=== PATIENT | female | born 1990 | race Caucasian/White ===

== ENCOUNTER 2020-05-20 05:58 | Emergency (ER) | payer OTHER, SELFPAY ==
--- NOTE | ~2020-05-20 | CT_ITS ---
EXAMINATION: CT abdomen pelvis w con EXAM DATE: 05/20/2020 07:46 INDICATION: Right upper quadrant abdominal pain, nausea and vomiting. TECHNIQUE: Spiral CT of the abdomen and pelvis was performed following intravenous injection of 100 m L Omnipaque 350. Axial, coronal and sagittal images were reviewed. The dose-length product (DLP) fo r this examination was 249.00 mGy-cm. The exposure was tailored according to patient size (auto mA e xposure control), and iterative reconstruction (ASIR) was used as additional dose reduction technique . There is no prior study for comparison. FINDINGS: The liver, spleen, adrenal glands and pancreas are unremarkable. Gallbladder is unremarkab le. No biliary obstruction. Portal and splenic veins are patent. Kidneys enhance symmetrically. T here is no hydronephrosis. The uterus is retroverted and morphologically normal. The bladder is u nremarkable. There is no retroperitoneal or pelvic lymphadenopathy. The appendix is not positively visualized. There is no pericecal inflammatory change to suggest appe ndicitis. The stomach and small bowel are unremarkable. There is expected amount of colonic stool. No free intraperitoneal gas. The heart is normal in size. There are no pericardial or pleural e ffusions. The lung bases are unremarkable. There are no osteoblastic or osteolytic lesions identifi ed. IMPRESSION: 1. No acute intra-abdominal findings. Reviewed, dictated and finalized at location A.
[2020-05-20 05:59] VITALS: BP 132/82; PULSE 82; RESP 20; TEMP 37; O2SAT 100
[2020-05-20 06:31] LABS: Basophils Percent Auto 0.4 % (0.2-1.2); Eosinophils Absolute Auto 0.3 K/mm3 (0-0.3); Hematocrit 36.9 % (37.0-47.0); Hemoglobin 12.5 g/dL (12.0-15.0); Immature Granulocyte Absolute 0.03 K/mm3 (0.00-0.031); Immature Granulocyte Percent A 0.3 % (0-0.5); Lymphocytes Absolute Auto 1.75 K/mm3 (0.9-3.2); Lymphocytes Percent Auto 18.3 % (18.3-44.2); Mean Corpuscular HGB Conc 33.9 g/dl (32-36); Mean Corpuscular Hemoglobin 32.2 pg (26-34); Mean Corpuscular Volume 95.1 fl (80-100); Monocytes Absolute Auto 0.7 K/mm3 (0.1-0.6); Monocytes Percent Auto 6.9 % (2.6-8.5); Neutrophils Absolute Auto 6.8 K/mm3 (1.3-6.7); Neutrophils Percent Auto 71.1 % (45.5-73.1); Platelet Count Result 306 k/mm3 (150-375); Red Blood Count 3.88 M/mm3 (4.2-5.4); Red Cell Distribution Width 11.9 % (11.5-14.5); White Blood Count 9.6 K/mm3 (4.5-10.0)
[2020-05-20 06:46] LABS: Alanine Aminotransferase 12 U/L (4-35); Albumin Level 4.7 g/dL (3.5-5.1); Alkaline Phosphatase 54 U/L (38-126); Anion Gap 11.8 mmol/L (7-16); Aspartate Amino Transferase 23 U/L (14-36); Bilirubin,Total 0.4 mg/dL (0.2-1.3); Blood Urea Nitrogen 12 mg/dL (7-17); Calcium 9.3 mg/dL (8.4-10.2); Carbon Dioxide 27 mmol/L (22-30); Chloride 103 mmol/L (98-107); Estimated Glomerular Filt Rate > 60; Glucose 92 mg/dL (65-105); Lipase 131 U/L (23-300); Potassium 3.8 mmol/L (3.4-5.0); Sodium 138 mmol/L (137-145)
[2020-05-20 06:51] LABS: Add Urine Microscopic? YES; Appearance Urine Clear (Clear); Bacteria Urine Trace /hpf; Bilirubin Urine Negative (Negative); Blood Urine 1+ (Negative); Color Urine Yellow (Yellow); Glucose Urine UA Negative (Negative); Ketones Urine Negative (Negative); Leukocyte Esterase Ur Negative LEU/UL (Negative); Mucus Urine Heavy /lpf; Nitrate Urine Negative (Negative); Protein Urine Negative (Negative); Squamous Epithelial Cell Urine Moderate /hpf (Few); Urobilinogen Urine Negative mg/dL (<2.0)
--- NOTE | 2020-05-20 07:04 | ED.ABDPAIN ---
HPI - Abdominal Pain General Chief Complaint: Abdominal Pain Stated Complaint: ABD PAIN Time Seen by Provider: 05/20/20 06:20 History of Present Illness HPI narrative: RUQ and epigastric pain since early this morning. Described as sharp and stabbing. No radiation. No exacerbating or alleviating factors. No nausea, vomiting, diarrhea, constipation, fever. She has never had this pain before. FHx of gall bladder disease in her mother. History mildly limited by prior stroke. Related Data Home Medications Medication Instructions Recorded Confirmed levetiracetam 750 mg PO BID 05/20/20 05/20/20 lisinopril 10 mg PO DAILY 05/20/20 05/20/20 Allergies Allergy/AdvReac Type Severity Reaction Status Date / Time No Known Allergies Allergy Verified 05/20/20 06:03 Review of Systems Review of Systems: All systems reviewed & are unremarkable except as noted in HPI and below Constitutional: Constitutional: Denies fever(s) Cardiovascular: Cardiovascular: Denies chest pain Respiratory: Respiratory: Denies dyspnea Gastrointestinal: Gastrointestinal: Denies abdominal pain, Denies constipation, Denies diarrhea, Denies nausea and Denies vomiting Genitourinary: Genitourinary: Denies hematuria and Denies dysuria Musculoskeletal: Musculoskeletal: Denies back pain Neurologic: Denies dizziness and Denies weakness [facility] Past Medical History Medical History (Updated 05/20/20 @ 09:41 by Rene Torres MD) Preeclampsia Stroke Family History Family History (Updated 05/20/20 @ 07:22 by Rene Torrse MD) Mother Gall bladder disease Social History Social History (Updated 05/20/20 @ 07:22 by Rene Torres MD) Living arrangements: with family Exam Const: General: healthy appearing, no acute distress and alert Orientation/consciousness: patient oriented x3 HENMT: Head: normal to inspection Neck: Neck: normal visual inspection and no lymphadenopathy Chest: Chest palpation & inspection: no tenderness Resp: Effort & Inspection: normal respiratory effort Auscultation: clear to auscultation bilaterally, no rales, no rhonchi and no wheezes Cardio: Jugular venous distension: no JVD Rate: regular rate Rhythm: regular rhythm Heart sounds: no murmurs GI: Inspection: non-distended GI Palp: Yes Soft to palpation, Yes Tenderness to palpation present (GI) (RUQ), No Guarding due to palpation present (GI) and No Rebound tenderness present Skin: General skin exam: normal color Neuro: General: patient oriented x3 and moves all extremities Speech: normal speech Extrem: General: no edema Psych: Appearance: well kempt Affect: normal affect Course Vital Signs Vital signs: Vital Signs Temperature 37.0 C 05/20/20 05:59 Pulse Rate 82 05/20/20 05:59 Respiratory Rate 20 05/20/20 05:59 Blood Pressure 132/82 05/20/20 05:59 Pulse Oximetry 100 05/20/20 05:59 Temperature 37.0 C 05/20/20 05:59 Pulse Rate 84 05/20/20 08:08 Respiratory Rate 16 05/20/20 08:08 Blood Pressure 113/74 05/20/20 08:08 Pulse Oximetry 100 05/20/20 08:08 MDM - Abdominal Pain MDM Narrative Medical decision making narrative: Labs normal. Nothing acute on CT. Pain improving. She feels ready for discharge at this time. Differential Diagnosis Differential diagnosis: Likely constipation, pancreatitis and other (gall stone) Medical Records Attestation: I reviewed the patient's medical records. Lab Data Attestation: I reviewed the patient's lab results. Result diagrams: 05/20/20 06:23 05/20/20 06:23 Labs: Lab Results 05/20/20 05/20/20 05/20/20 Range/Units 06:23 06:23 06:42 WBC 9.6 (4.5-10.0) K/mm3 RBC 3.88 L (4.2-5.4) M/mm3 Hgb 12.5 (12.0-15.0) g/dL Hct 36.9 L (37.0-47.0) % MCV 95.1 (80-100) fl MCH 32.2 (26-34) pg MCHC 33.9 (32-36) g/dl RDW 11.9 (11.5-14.5) % Plt Count 306 (150-375) k/mm3 MPV 9.0 (7.4-10.4) fl Jasmyne
[2020-05-20 08:08] VITALS: BP 113/74; PULSE 84; RESP 16; O2SAT 100
== END 2020-05-20 09:51 | disposition home or self-care (01) ==
PROVIDERS: Emergency Medicine; Emergency Provider Emergency Medicine; PCP Registered Nurse
DX: R10.11 Right upper quadrant pain (principal); Z86.73 Personal history of transient ischemic attack (TIA), and cerebral infarction without residual deficits
CPT/HCPCS: 36415; 74177; 80053; 81001; 81025; 83690; 85025; 96374; 99284; J3010; Q9967

== ENCOUNTER 2020-12-19 10:47 | Outpatient (CLI) | payer OTHER, SELFPAY ==
--- NOTE | ~2020-12-19 | XR_ITS ---
EXAMINATION: XR abdomen/kub 1V EXAM DATE: 12/19/2020 11:02 INDICATION: Left ureteral stone. TECHNIQUE: Frontal projection(s) of the abdomen for interpretation. Correlation is made to CT abdomen pelvis 05/20/2020. FINDINGS: There is moderate mild to moderate amount of colonic stool and gas. No small bowel dilati on, nonobstructive bowel gas pattern. There are no suspicious calcifications identified. There is no organomegaly suspected. Mild to moderate lower thoracic levoscoliosis. IMPRESSION: Unremarkable abdomen x-ray exam. Reviewed, dictated and finalized at location A. [employer]
== END 2020-12-19 10:48 | disposition home or self-care (01) ==
PROVIDERS: PCP Registered Nurse; Visit Provider Urology
DX: N20.1 Calculus of ureter (principal)
CPT/HCPCS: 74018

== ENCOUNTER 2022-06-14 22:19 | Emergency (ER) | payer OTHER, SELFPAY ==
[2022-06-14 22:22] VITALS: BP 131/91; PULSE 80; RESP 20; TEMP 36.5; O2SAT 100
[2022-06-14 22:39] VITALS: PULSE 84; RESP 21; O2SAT 97
[2022-06-14 22:45] VITALS: PULSE 77; RESP 25; O2SAT 98
[2022-06-14] MEDS: diphenhydrAMINE HCl INJ 50 MG/ML VIAL IV PUSH (22:56)
[2022-06-14 23:00] VITALS: PULSE 82; RESP 26; O2SAT 98
[2022-06-14 23:01] VITALS: BP 126/58; PULSE 73; RESP 22; O2SAT 98
--- NOTE | 2022-06-14 23:35 | ED.GENADULT ---
HPI - General Adult General Chief complaint: Headache Stated complaint: headache, jaw pain/tightness Time Seen by Provider: 06/14/22 22:43 History of Present Illness HPI narrative: Patient is a 31-year-old female who presents the emergency department with chief complaint of jaw stuck open. Patient reports that she suddenly had where her face twisted and her jaw was stuck open. The patient reports she was able to forcefully close her mouth but reports that she has never had anything like this before. The patient denies weakness in her arms or legs denies focal neurological deficit. 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 Patient states that she has no other new medications. Patient denies seizure denies altered mental status. The patient states the little better since she is arrived to the emergency department. Related Data Home Medications Medication Instructions Recorded Confirmed levetiracetam 750 mg tablet 750 mg PO BID 05/20/20 05/20/20 lisinopril 10 mg tablet 10 mg PO DAILY 05/20/20 05/20/20 Allergies Allergy/AdvReac Type Severity Reaction Status Date / Time No Known Allergies Allergy Verified 06/14/22 22:24 Review of Systems Review of Systems: A 10 system review of systems was completed on the patient and is negative except for what is stated in the HPI. Nursing and ancillary documentation was reviewed. PMFSH Past Medical History Medical History Preeclampsia Stroke Family History Family History Mother Gall bladder disease Comments Prior hemorrhagic stroke Exam Narrative: GENERAL: Well-appearing, well-nourished, and in no acute distress. HEAD: Normocephalic, atraumatic. EYES: PERRLA and EOMI. ENT: Nares clear, no rhinorrhea or epistaxis. Mucous membranes moist. NECK: Supple. CHEST: Clear to auscultation. No respiratory distress. HEART: Regular rate and rhythm. No murmur heard. Normal peripheral pulses. ABDOMEN: Soft, nontender, nondistended, normal active bowel sounds. EXTREMITIES: Normal range of motion. No edema. SKIN: Warm, dry, no rash. NEURO: No focal deficits. Alert and oriented x3. Dystonic type reaction appearing facial expression PSYCH: Normal mood and affect. Course Course Emergency Course: Patient was given a course of Benadryl in the emergency department which instantaneously fixed her symptoms Vital Signs Vital signs: Vital Signs Temperature 36.5 C 06/14/22 22:22 Pulse Rate 80 06/14/22 22:22 Respiratory Rate 20 06/14/22 22:22 Blood Pressure 131/91 H 06/14/22 22:22 Pulse Oximetry 100 06/14/22 22:22 Oxygen Delivery Room Air 06/14/22 22:22 Temperature 36.5 C 06/14/22 22:22 Pulse Rate 85 06/14/22 23:45 Respiratory Rate 21 H 06/14/22 23:45 Blood Pressure 126/58 L 06/14/22 23:01 Pulse Oximetry 98 06/14/22 23:45 Oxygen Delivery Room Air 06/14/22 22:22 Medical Decision Making Vital Signs Vital Signs: Vital Signs Temperature 36.5 C 06/14/22 22:22 Pulse Rate 80 06/14/22 22:22 Respiratory Rate 20 06/14/22 22:22 Blood Pressure 131/91 H 06/14/22 22:22 Pulse Oximetry 100 06/14/22 22:22 Oxygen Delivery Room Air 06/14/22 22:22 Temperature 36.5 C 06/14/22 22:22 Pulse Rate 85 06/14/22 23:45 Respiratory Rate 21 H 06/14/22 23:45 Blood Pressure 126/58 L 06/14/22 23:01 Pulse Oximetry 98 06/14/22 23:45 Oxygen Delivery Room Air 06/14/22 22:22 Discharge Plan Discharge Clinical Impression: Dystonia Patient Disposition: Home, Self-Care Condition: Stable Instructions: Antibiotic Form, Extrapyramidal Symptoms (ED) Additional Instructions: You may take Benadryl if the symptoms return. Please follow-up with your neurologist as they may want to consider switching your Keppra if you continue to have symptoms Prescriptions: No Action lisinop
[2022-06-14 23:45] VITALS: PULSE 85; RESP 21; O2SAT 98
== END 2022-06-15 00:24 | disposition home or self-care (01) ==
PROVIDERS: Emergency Provider Emergency Medicine; PCP Registered Nurse
DX: G24.9 Dystonia, unspecified (principal); Z86.73 Personal history of transient ischemic attack (TIA), and cerebral infarction without residual deficits
CPT/HCPCS: 96374; 99284; J1200